=== PATIENT | female | born 1975 | race American Indian/Alaskan Native ===

== ENCOUNTER 2017-04-08 19:48 | Emergency (ER) | payer MEDICAID ==
[2017-04-08 22:17] LABS: Bilirubin,Urine NEG (Negative); Blood,Urine NEG (Negative); Ketones,Urine NEG (Negative); Leukocyte Esterase,Urine NEG (Negative); Nitrite,Urine NEG (Negative); Protein,Urine <15 mg/dL mg/dL (Negative); Urobilinogen,Urine < 2.0 mg/dL (<2.0)
[2017-04-08] MEDS ORDERED: BOOSTRIX IM ONE (23:09)
--- NOTE | 2017-04-08 23:14 | Emergency Department Report ---
ED Animal Bite HPI - General Chief Complaint: Animal Bite Stated Complaint: DOG BITE TO R FOOT Time Seen by Provider: 04/08/17 22:52 Source: patient Mode of arrival: Ambulatory Limitations: No Limitations - History of Present Illness Initial Comments: Patient comes into the ER tonight with complaints of a dog bite to her right foot. Patient states that she was at the [employer] garage when apparently his dog was roaming around the garage and when she went to leave the dog came and attacked her biting her right foot. Patient denies any other injury. Patient is unsure of her last tetanus shot. She is able to bear weight on her foot but it is uncomfortable. She denies any numbness, tingling, loss of movement. MD Complaint: animal bite -: Sudden, This evening (just prior to arrival) - Related Data Home Medications Medication Instructions Recorded Confirmed Last Taken Pow[place] Aspartate [Lithate] 30 mg PO BID 01/10/15 01/10/15 01/10/15 Ziprasidone [Geodon] 0 mg PO BID 01/10/15 01/10/15 01/10/15 Previous Rx's Medication Instructions Recorded Last Taken Type Fluticasone [Flonase] 1 spray NS QDAY #1 bottle 01/11/15 Unknown Rx Ibuprofen [Motrin 800 MG tab] 800 mg PO Q8H PRN #30 tablet 01/11/15 Unknown Rx Amoxicillin/K Clav Tab [Augmentin 1 tab PO Q12HR #20 tab 04/08/17 Unknown Rx 875 mg] traMADol [Ultram] 50 mg PO Q4HR PRN #15 tablet 04/08/17 Unknown Rx Allergies Allergy/AdvReac Type Severity Reaction Status Date / Time No Known Allergies Allergy Verified 01/11/15 00:17 ED Review of Systems ROS: Stated complaint: DOG BITE TO R FOOT Other details as noted in HPI Constitutional: denies: chills, fever Eyes: denies: eye pain, eye discharge, vision change ENT: denies: ear pain, throat pain Respiratory: denies: cough, shortness of breath, wheezing Cardiovascular: denies: chest pain, palpitations Endocrine: no symptoms reported Gastrointestinal: denies: abdominal pain, nausea, diarrhea Genitourinary: denies: urgency, dysuria, discharge Musculoskeletal: arthralgia (foot pain). denies: back pain, joint swelling Skin: denies: rash, lesions Neurological: denies: headache, weakness, paresthesias Psychiatric: denies: anxiety, depression Hematological/Lymphatic: denies: easy bleeding, easy bruising ED Past Medical Hx - Past Medical History Previous Medical History?: Yes Hx Psychiatric Treatment: Yes (bipolar) - Surgical History Past Surgical History?: Yes Hx Breast Surgery: Yes (infection removal) - Social History Smoking Status: Current Every Day Smoker Substance Use Type: Alcohol - Medications Home Medications: Home Medications Medication Instructions Recorded Confirmed Last Taken Type [place] Aspartate [Lithate] 30 mg PO BID 01/10/15 01/10/15 01/10/15 History Ziprasidone [Geodon] 0 mg PO BID 01/10/15 01/10/15 01/10/15 History Fluticasone [Flonase] 1 spray NS QDAY #1 bottle 01/11/15 Unknown Rx Ibuprofen [Motrin 800 MG tab] 800 mg PO Q8H PRN #30 tablet 01/11/15 Unknown Rx Amoxicillin/K Clav Tab [Augmentin 1 tab PO Q12HR #20 tab 04/08/17 Unknown Rx 875 mg] traMADol [Ultram] 50 mg PO Q4HR PRN #15 tablet 04/08/17 Unknown Rx ED Physical Exam - General Limitations: No Limitations General appearance: alert, in no apparent distress - Head Head exam: Present: atraumatic, normocephalic - Eye Eye exam: Present: normal appearance - ENT ENT exam: Present: mucous membranes moist - Neck Neck exam: Present: normal inspection - Respiratory Respiratory exam: Present: normal lung sounds bilaterally. Absent: respiratory distress - Cardiovascular Cardiovascular Exam: Present: regular rate, normal rhythm. Absent: systolic murmur, diastolic murmur, rubs, gallop - GI/Abdominal GI/Abdominal exam: Present: soft, normal bowel sounds - Extremities Exam Extremities exam: Present: normal inspection, full ROM, tenderness (tenderness to right dorsal foot medially area of puncture wounds.), normal capillary refill , other (2 puncture wounds noted to dorsal surface of right foot that appear to be subcutaneous and approximately 0.5 cm in length. Third puncture wound appears superficial and is more lateral on the dorsal surface of foot. No active bleeding on initial examination.). Absent: pedal edema, calf tenderness - Back Exam Back exam: Present: normal inspection - Neurological Exam Neurological exam: Present: alert, oriented X3, CN II-XII intact, reflexes normal. Absent: motor sensory deficit - Psychiatric Psychiatric exam: Present: normal affect, normal mood - Skin Skin exam: Present: warm, dry, intact, normal color. Absent: rash ED Course Vital Signs 04/08/17 20:48 Temperature 98.1 F Pulse Rate 89 Blood Pressure 118/68 O2 Sat by Pulse 100 Oximetry Critical care attestation.: If time is entered above; I have spent that time in minutes in the direct care of this critically ill patient, excluding procedure time. ED Disposition Clinical Impression: Dog bite of right foot, Puncture wound of foot, right Disposition: DISCHARGED TO HOME OR SELFCARE Is pt being admited?: No Does the pt Need Aspirin: No Condition: Good Instructions: Animal Bite (ED), Puncture Wound (ED) Prescriptions: Amoxicillin/K Clav Tab [Augmentin 875 mg] 1 tab PO Q12HR #20 tab traMADol [Ultram] 50 mg PO Q4HR PRN #15 tablet PRN Reason: Pain Referrals: PRIMARY CARE,MD [Primary Care Provider] - 3-5 Days Forms: Work/School Release Form(ED) Time of Disposition: 23:46 ED Medical Decision Making - Lab Data Lab Results 04/08/17 Range/Units 21:44 Urine Color Straw (Yellow) Urine Turbidity Clear (Clear) Urine pH 5.0 (5.0-7.0) Ur Specific [place] 1.006 (1.003-1.030) Urine Protein <15 mg/dl (Negative) mg/dL Urine Glucose (UA) Neg (Negative) mg/dL Urine Ketones Neg (Negative) mg/dL Urine Blood Neg (Negative) Urine Nitrite Neg (Negative) Urine Bilirubin Neg (Negative) Urine Urobilinogen < 2.0 (<2.0) mg/dL Ur Leukocyte Esterase Neg (Negative) Urine WBC (Auto) 1.0 (0.0-6.0) /HPF Urine RBC (Auto) 1.0 (0.0-6.0) /HPF U Epithel Cells (Auto) 1.0 (0-13.0) /HPF Urine HCG, Qual Negative (Negative) - Radiology Data Radiology results: image reviewed interpreted by me: No acute process noted on x-ray. No bone injury and no foreign body noted. - Medical Decision Making Patient is nontoxic and hemodynamically stable. I informed patient that the wounds themselves do not need to be sutured. Patient was soaked in diluted Betadine for 10-15 minutes. X-ray imaging obtained of the foot to evaluate for bone injury versus foreign body. Wounds were bandaged with nonadherent and Coban wrap. Patient was given tetanus vaccine here in the ER. I will start patient on some antibiotics as well as prescribe her some pain medications for any symptomatic relief. I have instructed patient on proper care of wound. I have Encouraged patient to return to the ER if any worsening of symptoms. Patient is in agreement with treatment plan patient is stable for discharge.
[2017-04-08 23:59] VITALS: BP 120/75
--- NOTE | 2017-04-09 07:30 | XRay Report ---
RIGHT FOOT, 3 views: History: Right foot pain, dog bite. The bony architecture is intact. Bony alignment is normal. No soft tissue abnormalities are seen. The joint spaces appear preserved. Small plantar spur is noted. IMPRESSION: Small plantar spur. Otherwise, unremarkable right foot exam.
== END 2017-04-09 00:01 | disposition home or self-care (01) ==
LOC: ED 19:48
DX: S91.351A Open bite, right foot, initial encounter (principal); S91.331A Puncture wound without foreign body, right foot, initial encounter; F31.9 Bipolar disorder, unspecified; F17.200 Nicotine dependence, unspecified, uncomplicated; W54.0XXA Bitten by dog, initial encounter; Y93.9 Activity, unspecified; Y92.9 Unspecified place or not applicable; Y99.9 Unspecified external cause status
CPT/HCPCS: 81001; 81025; 90471; 90715; 99283

== ENCOUNTER 2017-07-31 16:07 | Emergency (ER) | payer MEDICAID, OTHER ==
--- NOTE | 2017-07-31 16:36 | Emergency Department Report ---
Stated Complaint: BODY PAIN, BLURRED VISION Time Seen by Provider: 07/31/17 16:31 - HPI History of Present Illness: PT states her hip was feeling achy yesterday. PT states she took pain medication and laid down. PT states on Sunday she started having sob, blurred vision and muscle pain. PT states she felt worse today. PT states she [facility] to [facility] because the last time she had these symptoms she went to the ED and then was sent to facility. PT states that she was told to go to the ED - ROS Review of Systems: + hip pain + back pain + shoulder pain + headache + blurred vision - Exam Physical Exam: PT is alert, anxious steady gait gcs 15 MSE screening note: Focused history and physical exam performed. Due to findings the following was ordered: labs ED Disposition for MSE Condition: Stable
[2017-07-31 16:37] VITALS: BP 117/66
[2017-07-31 17:07] LABS: Basophils % (Auto) 1.1 % (0.0-1.8); Eosinophils % (Auto) 4.3 % (0.0-4.3); Hematocrit 32.3 % (30.3-42.9); Hemoglobin 10.1 gm/dl (10.1-14.3); Mean Corpuscular HGB Conc 31 % (30-34); Platelet Count 273 K/mm3 (140-440); Red Blood Count 4.93 M/mm3 (3.65-5.03); White Blood Count 5.3 K/mm3 (4.5-11.0)
[2017-07-31 17:08] LABS: Mean Corpuscular Hemoglobin 21 pg (28-32); Mean Corpuscular Volume 66 fl (79-97); Red Cell Distribution Width 21.3 % (13.2-15.2)
[2017-07-31 17:20] LABS: Alanine Aminotransferase 10 units/L (7-56); Albumin 4.4 g/dL (3.9-5); Albumin/Globulin Ratio 1.4 %; Alkaline Phosphatase 60 units/L (35-129); Anion Gap 18 mmol/L; BUN/Creatinine Ratio 11.25; Blood Urea Nitrogen 9 mg/dL (7-17); Carbon Dioxide 23 mmol/L (22-30); Chloride 103.7 mmol/L (98-107); Glucose 95 mg/dL (65-100); Sodium 141 mmol/L (137-145); Total Protein 7.5 g/dL (6.3-8.2)
[2017-07-31 17:46] LABS: Urine Drugs of Abuse Note Disclamer
[2017-07-31 17:59] LABS: Bilirubin,Urine NEG (Negative); Blood,Urine LG (Negative); Ketones,Urine NEG (Negative); Leukocyte Esterase,Urine NEG (Negative); Mucus,Urine 3+ /HPF; Nitrite,Urine NEG (Negative); Protein,Urine <15 mg/dL mg/dL (Negative); Urobilinogen,Urine < 2.0 mg/dL (<2.0)
--- NOTE | 2017-08-01 07:39 | XRay Report ---
Chest 2 views: History: Shortness of breath. Findings: Normal cardiomediastinal silhouette. Trachea is midline. No consolidation, pneumothorax or pleural effusion. Impression: No acute cardiopulmonary findings.
== END 2017-08-01 01:40 | disposition left against medical advice (07) ==
LOC: ED 16:07
DX: M79.1 Myalgia (principal); Z53.21 Procedure and treatment not carried out due to patient leaving prior to being seen by health care provider
CPT/HCPCS: 36415; 71020; 80053; 80307; 81001; 84484; 84703; 85025; 93005; 93010; G0480; 80320